=== PATIENT | male | born 1945 | race Caucasian/White ===

== ENCOUNTER 2016-06-06 07:16 | Day surgery (SDC) | payer OTHER ==
[2016-06-06] MEDS ORDERED: KEFZOL 1 GM/D5W 50 ML ONE (08:07)
[2016-06-06] MEDS ORDERED: NS 1,000 ML ONE (08:07)
[2016-06-06] MEDS ORDERED: NS 500 ML ONE (09:15)
[2016-06-06] MEDS ORDERED: CARBOCAINE PF 2% ONE (09:15)
[2016-06-06] MEDS ORDERED: AMIDATE ONE ×2 (09:22→11:15)
[2016-06-06 09:30] LABS: INR 1.02; PROTIME 10.8 Seconds (9.2-11.7); PTT 26.2 Seconds (22.0-36.0)
[2016-06-06] MEDS ORDERED: VERSED ONE (11:12)
[2016-06-06] MEDS ORDERED: XYLOCAINE-MPF 2% ONE (11:15)
[2016-06-06 12:32] VITALS: BP 114/87
--- NOTE | 2016-06-06 13:05 | Diag Imaging Result Document ---
PROCEDURE NAME: S/I NEPHROSTOGRAM NEW ACCESS - 06/06/2016 ANTEGRADE PLACEMENT OF LEFT URETERAL STENT: COMMENT: The risks and benefits of the procedure including the possibility of bleeding, infection, reaction to lidocaine or other medications given for anesthesia were discussed with the patient and his family. They agreed to the procedure. The possibility of an external drain (percutaneous nephrostomy) were also discussed (and in the event this was not the case.) Following sterile preparation the skin posterolaterally over the left flank and administration of local anesthesia to the skin and deeper soft tissues, the collecting system was punctured under ultrasonographic guidance and contrast was injected into the system opacifying it and the ureter. There is a somewhat tortuous ureter. There is considerable caliectasis and hydronephrosis. Subsequently, a guidewire was advanced into the bladder, over which a straight angiographic catheter was placed to negotiate the tortuosity in the proximal ureter. Subsequently, the stent was placed in antegrade fashion over the wire. The upper pigtail is located in the ureteropelvic junction region. The lower pigtail is in the bladder. There are no immediate complications. IMPRESSION: Successful placement of ureteral stent as described. The fluoroscopic time was 3 minutes and the dose was 64 mGy. [facility]
== END 2016-06-06 12:31 | disposition home or self-care (01) ==
LOC: OPS 07:16
PROVIDERS: ATTEND Urology
DX: N13.1 Hydronephrosis with ureteral stricture, not elsewhere classified (principal); J45.909 Unspecified asthma, uncomplicated; J44.9 Chronic obstructive pulmonary disease, unspecified; F17.210 Nicotine dependence, cigarettes, uncomplicated; I10 Essential (primary) hypertension; I25.10 Atherosclerotic heart disease of native coronary artery without angina pectoris; I73.9 Peripheral vascular disease, unspecified; K21.9 Gastro-esophageal reflux disease without esophagitis; K70.10 Alcoholic hepatitis without ascites; M19.91 Primary osteoarthritis, unspecified site; E11.9 Type 2 diabetes mellitus without complications; Z95.820 Peripheral vascular angioplasty status with implants and grafts; Z79.899 Other long term (current) drug therapy; Z79.51 Long term (current) use of inhaled steroids; Z79.4 Long term (current) use of insulin
CPT/HCPCS: 50430; 76775; 82948; 85610; 85730; J0670; J0690; J2250; J7030; J7040